=== PATIENT | male | born 1975 | race Caucasian/White ===

== ENCOUNTER 2016-09-25 07:15 | Day surgery (SDC) | payer BC ==
[~2016-09-25 07:15] MED LIST: Lactated Ringers 1,000 ML IV SCH; Lidocaine 1%/Sod Bicarbonate in NS 8.4% 1 ML Syringe IV PRN; Midazolam 1 MG/ML 2 ML SDV ONE; Propofol 200 MG/20 ML SDV ONE; Sodium Chloride 0.9% 10 ML Syringe FLUSH PRN; ceFAZolin 1 GM Vial ONE; fentaNYL 250 MCG/5 ML SDV ONE
--- NOTE | 2016-09-25 07:39 | PCM.PREANE ---
Preanesthetic Assessment - Anesthesia/Transfusion/Family Hx Anesthesia History: Prior Anesthesia Without Reaction Type of Anesthesia Reaction: Excessive Nausea/Vomiting, Unknown Family History of Anesthesia Reaction: No Transfusion History: Unknown Type of Transfusion Reactions: Reports: Unknown - Review of Systems General: No Symptoms Pulmonary: Other (hx of frostbite to lungs, no symptoms currently, only in very cold weather) Cardiovascular: No Symptoms Gastrointestinal: No symptoms Neurological: Other (left arm, here for surgery) - Physical Assessment NPO Status Date: 09/24/16 NPO Status Time: 18:30 Pulse: 77 O2 Sat by Pulse Oximetry: 93 Respiratory Rate: 16 Blood Pressure: 132/78 Temperature: 37.0 C Height: 1.91 m Weight: 167.829 kg ASA Class: 2 Mental Status: Alert & Oriented x3 Airway Class: Mallampati = 1 Dentition: Reports: Normal Dentition Thyro-Mental Finger Breadths: 3 Mouth Opening Finger Breadths: 3 ROM/Head Extension: Full Lungs: Clear to auscultation, Normal respiratory effort Cardiovascular: Regular Rate, Regular Rhythm - Allergies Allergies/Adverse Reactions: Allergies Allergy/AdvReac Type Severity Reaction Status Date / Time morphine Allergy Cannot Verified 09/24/16 14:22 Remember nut - unspecified Allergy Anaphylactic Verified 09/24/16 14:22 Shock - Blood Blood Available: No Product(s) Available: None - Anesthesia Plan Pre-Op Medication Ordered: None - Acknowledgements Anesthesia Type Planned: General Anesthesia Pt an Appropriate Candidate for the Planned Anesthesia: Yes Alternatives and Risks of Anesthesia Discussed w Pt/Guardian: Yes Pt/Guardian Understands and Agrees with Anesthesia Plan: Yes PreAnesthesia Questionnaire - Past Health History Medical/Surgical History: Denies Medical/Surgical History Cardiovascular History: Reports: None Respiratory History: Reports: Sleep apnea, Other (see below) Other Respiratory History: frostbite affecting trachea and lungs-states was told trachea and upper lungs have a lot of scar tissue, had chronic cough and was placed on prednisone for a year. Gastrointestinal History: Reports: None Genitourinary History: Reports: None SPOOL SANDER History: Reports: None Musculoskeletal History: Reports: Fracture Neurological History: Reports: Concussion Psychiatric History: Reports: None Endocrine/Metabolic History: Reports: Other (see below) Other Endocrine/Metabolic History: hypopituitarism, emtpy sella syndrome Hematologic History: Reports: None Immunologic History: Reports: None Oncologic (Cancer) History: Reports: None Dermatologic History: Reports: Other (see below) Other Dermatologic History: frostbite - Past Surgical History HEENT Surgical History: Reports: Oral surgery, Tonsillectomy Musculoskeletal Surgical History: Reports: Arthroscopic knee, Shoulder surgery, Other (see below) Other Musculoskeletal Surgeries/Procedures:: knee surgery with hardware - SUBSTANCE USE Smoking Status *Q: Never Smoker Second Hand Smoke Exposure: No Days Per Week of Alcohol Use: 0 Recreational Drug Use History: No - HOME MEDS Home Medications: Home Meds EPINEPHrine [Epipen] 0.3 mg IM ASDIRECTED PRN 09/06/14 [History] Phentermine HCl 37.5 mg PO DAILY 09/24/16 [History] Testosterone Cypionate [Depo-Testosterone] 1 dose SQ WEEKLY 09/24/16 [History] - CURRENT (IN HOUSE) MEDS Current Meds: Current Medications Lactated Ringer's (Ringers, Lactated) 1,000 mls @ 125 mls/hr IV ASDIRECTED ANNELISE Lidocaine/Sodium Bicarbonate (Buffered Lidocaine 1% In Ns 8.4%) 0.25 ml IV ONETIME PRN PRN Reason: Prior to IV Start Sodium Chloride (Saline Flush) 10 ml FLUSH ASDIRECTED PRN PRN Reason: Keep Vein Open Discontinued Medications Cefazolin Sodium (Ancef) Confirm Administered Dose 2 gm .ROUTE .STK-MED ONE Stop: 09/25/16 06:58 Fentanyl (Sublimaze) Confirm Administered Dose 250 mcg .ROUTE .STK-MED ONE Stop: 09/25/16 06:59 Midazolam HCl (Versed 1 Mg/Ml) Confirm Administered Dose 2 mg .ROUTE .STK-MED ONE Stop: 09/25/16 06:59 Propofol (Diprivan 20 Ml) Confirm Administered Dose 200 mg .ROUTE .STK-MED ONE Stop: 09/25/16 06:59
[2016-09-25] MEDS ORDERED: HYDROmorphone 0.5 MG/0.5 ML Syringe IVPUSH PRN (07:42)
[2016-09-25] MEDS ORDERED: Metoclopramide 10 MG/2 ML SDV IVPUSH PRN (07:42)
[2016-09-25] MEDS ORDERED: Ondansetron 4 MG/2 ML SDV IVPUSH PRN ×2 (07:42→07:50)
[2016-09-25] MEDS ORDERED: fentaNYL 100 MCG/2 ML SDV IVPUSH PRN (07:42)
[2016-09-25] MEDS ORDERED: Scopolamine 1.5 MG Transdermal Patch TOP ONE (07:45)
[2016-09-25] MEDS ORDERED: oxyCODONE ER 10 MG TAB.ER PO ONE (07:50)
[2016-09-25] MEDS ORDERED: Acetaminophen/oxyCODONE 325-5 MG Tab PO PRN (07:50)
[2016-09-25] MEDS ORDERED: Ketorolac 30 MG/ML SDV IVPUSH PRN (07:50)
[2016-09-25] MEDS ORDERED: Propofol 200 MG/20 ML SDV ONE (08:05)
[2016-09-25] MEDS ORDERED: ceFAZolin 1 GM Vial ONE (08:13)
[2016-09-25] MEDS ORDERED: Ondansetron 4 MG/2 ML SDV ONE (08:21)
[2016-09-25] MEDS ORDERED: Dexamethasone 4 MG/ML SDV ONE (08:21)
[2016-09-25] MEDS: Lidocaine 1% with EPINEPHrine 1:100,000 20 ML MDV ONE ×2 (08:45→09:00)
[2016-09-25] MEDS ORDERED: Lactated Ringers 1,000 ML ONE (09:06)
[2016-09-25] MEDS ORDERED: Ketorolac 30 MG/ML SDV ONE (09:39)
--- NOTE | 2016-09-25 09:51 | PCM.POSTAN ---
POST ANESTHESIA ASSESSMENT - MENTAL STATUS Mental Status: alert, oriented - VITAL SIGNS Pulse Rate: 78 SaO2: 95 Resp Rate: 16 Blood Pressure: 138/72 Temperature: 37.0 C - RESPIRATORY Respiratory Status: respiratory rate WNL, airway patent, O2 saturation stable, supplemental oxygen - CARDIOVASCULAR CV Status: pulse rate WNL, blood pressure stable - GASTROINTESTINAL GI Status: no symptoms - PAIN Pain Score: 0 - POST OP HYDRATION Hydration Status: adequate & stable
[2016-09-25 12:54] VITALS: BP 143/68
--- NOTE | 2016-09-26 09:06 | OR ---
DATE OF OPERATION: 09/25/2016 SURGEON: Adiel Diaz MD PREOPERATIVE DIAGNOSIS: Cubital tunnel syndrome, left elbow, intractable pain and numbness. POSTOPERATIVE DIAGNOSIS: Cubital tunnel syndrome, left elbow, intractable pain and numbness. ANESTHESIA: General. OPERATION PERFORMED: Subcutaneous soft tissue transfer, left ulnar nerve, anterior. DESCRIPTION OF PROCEDURE: The patient was taken to the operating room in supine position and was placed under general anesthesia. Left upper extremity was prepped and draped by standard technique for approach to the medial side of his left elbow. After prepping and draping, the area of incision was marked, the medial epicondyle, and then area approximately 1.5 cm anterior to that for placement of the soft tissue fascial sling. Once those were marked, the incision was approximately a 10 cm incision, 5 cm above the medial epicondyle and 5 below with the center of the incision being placed between the olecranon and medial condyle. Penetration was made through the skin and subcutaneous tissues. These were bluntly dissected down to the fascia overlying the cubital tunnel area both proximally and distally taking care not to injure the superficial nerve structure in the deeper portion of the wound area. Once that was accomplished, the operation then proceeded with a soft tissue dissection proximally to find the ulnar nerve. This was identified and then it was dissected free proximally, approximately 8 cm above the elbow joint making sure there were no fibrous restrictions approximately. Once that was satisfied, the ulnar nerve was then dissected down through the cubital tunnel area where it was removed from a very thickened fascial tunnel structure area. Once the nerve was brought out from that area, it was then dissected down to the entry into the flexor carpi ulnaris muscle where it split between the humeral and the ulnar heads. The nerve was then dissected deeper and then palpated with the finger palpation deep to make sure there was no fibrous hiatal-type restriction distally. Once that was satisfied, the nerve was mobilized. The operation then proceeded with identification of the pronator muscle fascia. Once that was identified, a soft tissue flap was then developed, based on the medial epicondyle, approximately 2 cm long and 1.5 cm wide. The fascial window was then lifted off the muscle group by sharp dissection, leaving the base of it firmly attached to the medial epicondyle. Once that was lifted off, it was palpated on the muscle to make sure there were no hard fibrous bands. Once that was satisfied, in the proximal area, the intermuscular septum that ole off the medial condyle was identified. The soft tissues were reflected away along with the venous plexus area. Approximately 2 cm piece of that interseptum was removed to prevent any type of fibrous pressure against the nerve once it was transposed. By palpation of that, it was found to be nice and soft. The operation then proceeded with transfer of the nerve anteriorly. The fascia window was then attached to the subcutaneous tissue to the anterior portion of the subcutaneous tissues at approximately the 1.5-cm karlo, that was identified on the initial approach. Once the fascial window was attached with 3-0 Vicryl spitting out with the nerve being shifted anteriorly, the elbow was flexed and extended watching the excursion to make sure there was no abrupt angulation of the nerve coming out of the flexor group. Once that was satisfied, area was then palpated using a blunt hemostat in the fascial sling area. The nerve was nice and loose, and then also there was no palpable impingement going proximally. The area was then thoroughly irrigated and final inspection was then carried out to make sure no fibrous bands remained. The deeper tissues of the tunnel were then closed with 2-0 Vicryl. Then, once the deep structures were closed over, the operation proceeded with closure of the subcutaneous tissues with 2-0 and 3-0 Vicryl. Once the soft tissues were closed, subcutaneous tissues, the skin staple was then used to close the wound. The patient was placed in a nice soft dressing. He tolerated this whole procedure well and left the operating room in stable condition to room for recovery. ESTIMATED BLOOD LOSS: MMODAL /[id number]
== END 2016-09-25 12:30 | disposition home or self-care (01) ==
LOC: JD.SDS 07:15
PROVIDERS: ATTEND Specialist
DX: G56.22 Lesion of ulnar nerve, left upper limb (principal); E66.01 Morbid (severe) obesity due to excess calories; Z88.8 Allergy status to other drugs, medicaments and biological substances; Z79.899 Other long term (current) drug therapy; Z98.890 Other specified postprocedural states; Z91.018 Allergy to other foods; E23.0 Hypopituitarism
CPT/HCPCS: 64718; A9270; J0690; J1100; J1885; J2250; J2405; J3010; J7120; 01710; J2704

== ENCOUNTER 2019-01-12 09:45 | Inpatient (IN) | payer BC ==
--- NOTE | 2019-01-09 09:03 | PCM.PREANE ---
<Ruby Alvarez - Last Filed: 01/09/19 08:57> Preanesthetic Assessment - Anesthesia/Transfusion/Family Hx Anesthesia History: Prior Anesthesia Reaction Type of Anesthesia Reaction: Excessive Nausea/Vomiting Family History of Anesthesia Reaction: No Transfusion History: No Prior Transfusion(s) Intubation History: Unknown - Review of Systems Pulmonary: No Symptoms (History of frostbite to lungs/trachea: symptomatic only in cold weather/CHRISSY) Cardiovascular: No Symptoms (chronic epigastric pain/) Gastrointestinal: No Symptoms (GERD) Neurological: No Symptoms (Empty Sella Syndrome), Numbness (bilateral hands) - Physical Assessment NPO Status Date: 01/11/19 Vital Signs: Last Vital Signs Temp 36.3 C 01/12/19 10:00 Pulse 57 L 01/12/19 10:00 Resp 16 01/12/19 10:00 BP 137/72 01/12/19 10:00 Pulse Ox 97 01/12/19 10:00 Height: 1.91 m ASA Class: 2 Mental Status: Alert & Oriented x3 Dentition: Reports: Normal Dentition, Caries Thyro-Mental Finger Breadths: 3 Mouth Opening Finger Breadths: 3 ROM/Head Extension: Full - Lab Values: Laboratory Last Values MRSA (PCR) Negative 01/06/19 09:21 All lab values reviewed and noted and within acceptable ranges to proceed with scheduled procedure. - Imaging/EKG Impressions: CXR: negative EKG:SR rate=63, incomplete RBBB - Allergies Allergies/Adverse Reactions: Allergies Allergy/AdvReac Type Severity Reaction Status Date / Time morphine Allergy Cannot Verified 01/09/19 13:35 Remember nut - unspecified Allergy Anaphylactic Verified 01/09/19 13:35 Shock - Anesthesia Plan Pre-Op Medication Ordered: Other (PreOp meds: lyrica, tylenol, oxycodone P.O.@) - Acknowledgements Anesthesia Type Planned: Spinal (Right adductor canal block under US guidance for post operative pain control requested by Dr. Ac.) Pt an Appropriate Candidate for the Planned Anesthesia: Yes Alternatives and Risks of Anesthesia Discussed w Pt/Guardian: Yes Pt/Guardian Understands and Agrees with Anesthesia Plan: Yes PreAnesthesia Questionnaire - Past Health History Medical/Surgical History: Denies Medical/Surgical History Cardiovascular History: Reports: None Respiratory History: Reports: Sleep Apnea, Other (See Below) Other Respiratory History: frostbite affecting trachea and lungs-states was told trachea and upper lungs have a lot of scar tissue, had chronic cough and was placed on prednisone for a year. Gastrointestinal History: Reports: None Genitourinary History: Reports: None CHIEF OPERATING OFFICER History: Reports: None Musculoskeletal History: Reports: Fracture Neurological History: Reports: Concussion Psychiatric History: Reports: None Endocrine/Metabolic History: Reports: Other (See Below) Other Endocrine/Metabolic History: hypopituitarism, emtpy sella syndrome Hematologic History: Reports: None Immunologic History: Reports: None Oncologic (Cancer) History: Reports: None Dermatologic History: Reports: Other (See Below) Other Dermatologic History: frostbite - Past Surgical History HEENT Surgical History: Reports: Oral Surgery, Tonsillectomy Musculoskeletal Surgical History: Reports: Arthroscopic Knee, Shoulder Surgery, Other (See Below) - HOME MEDS Home Medications: Home Meds . [No Known Home Meds] 01/09/19 [History] - CURRENT (IN HOUSE) MEDS Current Meds: Current Medications Acetaminophen (Tylenol) 975 mg PO ONETIME ANNELISE Stop: 01/12/19 14:00 Last Admin: 01/12/19 10:03 Dose: 975 mg Bisacodyl (Dulcolax) 5 mg PO DAILY PRN PRN Reason: Constipation Epinephrine HCl 0.3 mg/Cefuroxime Sodium 750 mg/Ketorolac Tromethamine 30 mg/ Sodium Chloride 28.7 ml 0 mg .XX ONETIME ONE Stop: 01/12/19 13:01 Cyclobenzaprine HCl (Flexeril) 10 mg PO TID PRN PRN Reason: Spasms Docusate Sodium (Colace) 100 mg PO BID ANNELISE Famotidine (Pepcid) 20 mg PO Q12H ANNELISE Hydromorphone HCl (Dilaudid) 0.2 mg IVPUSH Q2H PRN PRN Reason: Pain (moderate 4-6) Lactated Ringer's (Ringers, Lactated) 1,000 mls @ 125 mls/hr IV ASDIRECTED ANNELISE Stop: 01/12/19 23:00 Cefazolin Sodium/Dextrose 2 gm (/ Premix) 50 mls @ 100 mls/hr IV Q8H ANNELISE Stop: 01/12/19 23:44 Ketorolac Tromethamine (Toradol) 15 mg IVPUSH Q6H PRN PRN Reason: Pain Lidocaine/Sodium Bicarbonate (Buffered Lidocaine 1% In Ns 8.4%) 0.25 ml IDERM ONETIME PRN PRN Reason: Prior to IV Start Stop: 01/12/19 18:00 Magnesium Hydroxide (Milk Of Magnesia) 30 ml PO BID PRN PRN Reason: Constipation Naloxone HCl (Narcan) 0.1 mg IVPUSH Q5M PRN PRN Reason: Oversedation Ondansetron HCl (Zofran) 4 mg IVPUSH Q6H PRN PRN Reason: Nausea/Vomiting Oxycodone HCl (Oxycontin) 10 mg PO ONETIME ANNELISE Stop: 01/12/19 14:00 Last Admin: 01/12/19 10:02 Dose: 10 mg Oxycodone/Acetaminophen (Percocet 325-5 Mg) 1 - 2 tab PO Q4H PRN PRN Reason: Pain Pregabalin (Lyrica) 50 mg PO ONETIME ANNELISE Stop: 01/12/19 14:00 Last Admin: 01/12/19 10:02 Dose: 50 mg Rivaroxaban (Xarelto) 10 mg PO DAILY ANNELISE Scopolamine (Transderm-Scop) 1.5 mg TRDERM ONETIME ANNELISE Stop: 01/12/19 14:00 Last Admin: 01/12/19 10:03 Dose: 1.5 mg Senna (Senna) 8.6 mg PO BID PRN PRN Reason: Constipation Sodium Chloride (Saline Flush) 10 ml FLUSH ASDIRECTED PRN PRN Reason: Keep Vein Open Stop: 01/12/19 18:00 Discontinued Medications Cefazolin Sodium (Ancef) Confirm Administered Dose 3 gm .ROUTE .STK-MED ONE Stop: 01/12/19 07:37 Dexamethasone (Dexamethasone) Confirm Administered Dose 20 mg .ROUTE .STK-MED ONE Stop: 01/12/19 07:37 Epinephrine HCl (Adrenalin) Confirm Administered Dose 1 mg .ROUTE .STK-MED ONE Stop: 01/12/19 06:49 Fentanyl (Sublimaze) Confirm Administered Dose 100 mcg .ROUTE .STK-MED ONE Stop: 01/12/19 07:38 Lidocaine HCl (Xylocaine-Mpf 1%) Confirm Administered Dose 10 mls @ as directed .ROUTE .STK-MED ONE Stop: 01/12/19 07:37 Lactated Ringer's (Ringers, Lactated) Confirm Administered Dose 1,000 mls @ as directed .ROUTE .STK-MED ONE Stop: 01/12/19 07:37 Ketamine HCl (Ketalar) Confirm Administered Dose 500 mg .ROUTE .STK-MED ONE Stop: 01/12/19 07:38 Ketorolac Tromethamine (Toradol) Confirm Administered Dose 30 mg .ROUTE .STK- MED ONE Stop: 01/12/19 07:37 Midazolam HCl (Versed 1 Mg/Ml) Confirm Administered Dose 2 mg .ROUTE .STK-MED ONE Stop: 01/12/19 07:38 Propofol (Diprivan 20 Ml) Confirm Administered Dose 400 mg .ROUTE .STK-MED ONE Stop: 01/12/19 07:38 Ropivacaine (Naropin 0.5%) Confirm Administered Dose 30 ml .ROUTE .STK-MED ONE Stop: 01/12/19 06:49 <Celsa Prasad - Last Filed: 01/12/19 10:34> Preanesthetic Assessment - Review of Systems General: No Symptoms Pulmonary: Shortness of Breath (activity ), Cough (in cold weather activates extreme coughing ), Other (obese ) Gastrointestinal: No Symptoms Neurological: No Symptoms - Physical Assessment NPO Status Time: 20:00 ASA Class: 3 Mental Status: Alert & Oriented x3 Airway Class: Mallampati = 1 Dentition: Reports: Normal Dentition, Caries ROM/Head Extension: Full Lungs: Clear to Auscultation, Normal Respiratory Effort Cardiovascular: Regular Rate, Regular Rhythm - Blood Blood Available: No - Acknowledgements Anesthesia Type Planned: Spinal Pt an Appropriate Candidate for the Planned Anesthesia: Yes Alternatives and Risks of Anesthesia Discussed w Pt/Guardian: Yes Pt/Guardian Understands and Agrees with Anesthesia Plan: Yes
[~2019-01-12 09:45] MED LIST changes: +Acetaminophen 325 MG Tab PO SCH; +Bisacodyl 5 MG Tab PO PRN; +Dexamethasone 4 MG/ML 5 ML MDV ONE; +EPINEPHrine 1 MG/1 ML Amp ONE; +HYDROmorphone 0.5 MG/0.5 ML Syringe IVPUSH PRN; +Ketamine 500 mg/10 ML MDV ONE; +Ketorolac 30 MG/ML SDV ONE; +Lactated Ringers 1,000 ML ONE; +Lidocaine 1%/Sod Bicarbonate in NS 8.4% 1 ML Syringe IDERM PRN; -Lidocaine 1%/Sod Bicarbonate in NS 8.4% 1 ML Syringe IV PRN; +Magnesium Hydroxide 400 MG/5 ML Susp 30 ML Cup PO PRN; +Naloxone 0.4 MG/ML SDV IVPUSH PRN; +Ondansetron 4 MG/2 ML SDV IVPUSH PRN; +Pregabalin 25 MG Cap PO SCH; +Ropivacaine 0.5% 5 MG/ML 30 ML SDV ONE; +Scopolamine 1.5 MG Transdermal Patch TRDERM SCH; +Sennosides 8.6 MG Tab PO PRN; +fentaNYL 100 MCG/2 ML SDV ONE; -fentaNYL 250 MCG/5 ML SDV ONE; +oxyCODONE ER 10 MG TAB.ER PO SCH
[2019-01-12] MEDS ORDERED: Iodine/Sodium Iodide 2% Tincture 30 ML Bottle ONE (12:46)
[2019-01-12] MEDS ORDERED: ceFAZolin 1 GM Vial ONE (12:46)
[2019-01-12] MEDS ORDERED: Bupivacaine 0.25% 10 ML SDV ONE (12:47)
[2019-01-12] MEDS ORDERED: diphenhydrAMINE 50 MG/ML SDV ONE (12:48)
[2019-01-12] MEDS: EPINEPHrine 0.3 MG, Cefuroxime 750 MG, Ketorolac 30 MG, Sodium Chloride 0.9% 28.7 ML ONE ×8 (13:40→17:40)
[2019-01-12] MEDS ORDERED: Haloperidol Lactate 5 MG/ML SDV IVPUSH ONE (13:42)
[2019-01-12] MEDS ORDERED: ePHEDrine 50 MG/ML SDV IVPUSH PRN (13:42)
[2019-01-12] MEDS ORDERED: fentaNYL 100 MCG/2 ML SDV IVPUSH PRN (13:42)
[2019-01-12] MEDS ORDERED: HYDROmorphone 0.5 MG/0.5 ML Syringe IVPUSH PRN (13:42)
[2019-01-12] MEDS ORDERED: Ondansetron 4 MG/2 ML SDV IVPUSH PRN (13:42)
[2019-01-12] MEDS ORDERED: Albuterol 0.083% 2.5 MG/3 ML Neb Soln NEB PRN (13:42)
[2019-01-12] MEDS ORDERED: Phenylephrine 1 MG in Sodium Chloride 0.9% 10 ML IV SCH (13:45)
[2019-01-12] MEDS ORDERED: Albuterol 0.083% 2.5 MG/3 ML Neb Soln ONE (14:14)
[2019-01-12] MEDS ORDERED: Propofol 200 MG/20 ML SDV ONE (14:15)
[2019-01-12] MEDS ORDERED: ePHEDrine/Normal Saline 25 MG/5 ML Syringe ONE (14:20)
[2019-01-12] MEDS: Vancomycin 1 GM SDV ONE ×2 (14:40→14:41)
[2019-01-12] MEDS ORDERED: Phenylephrine/Normal Saline 100 MCG/ML 10 ML Syringe ONE (14:44)
--- NOTE | 2019-01-12 15:21 | PCM.POSTAN ---
POST ANESTHESIA ASSESSMENT - MENTAL STATUS Mental Status: Alert - VITAL SIGNS Vital Signs: Last Vital Signs Temp 97.2f 01/12/19 15:14 Pulse 62 01/12/19 15:14 Resp 12 01/12/19 15:14 BP 106/49 01/12/19 15:14 Pulse Ox 94 01/12/19 15:14 - RESPIRATORY Respiratory Status: Respiratory Rate WNL, Airway Patent, O2 Saturation Stable, Supplemental Oxygen - CARDIOVASCULAR CV Status: Pulse Rate WNL, Blood Pressure Stable - GASTROINTESTINAL GI Status: No Symptoms - POST OP HYDRATION Hydration Status: Adequate & Stable
--- NOTE | 2019-01-12 15:42 | PCM.SN ---
- Free Text/Narrative Note: Right selective femoral nerve block at the adductor canal for post-procedure pain control under US guidance requested by Dr. Ac. Time Out: 152 Start: 152 End: 152 Chart reviewed. Consent signed. Questions answered. Appropriate monitors applied. Time out performed. Right mid-shaft femur identified with ultrasound, scanning medially of femur, the femoral artery in the adductor canal visualized , and the femoral nerve located laterally to the artery. The skin was prepped lateral to the ultrasound probe with chlorahexadine times two. The 21ga 4 insulated block needle was inserted under direct ultrasound guidance into the adductor canal. 25mL of 0.5% ropivacaine with 1:200,000 epinephrine was injected circumferentially around the nerve with intermittent negative aspiration noted. Patient tolerated the procedure well. Sterile technique noted along with sterile gloves, mask, and sterile probe cover. See picture on progress note and vital signs on nurses notes. Block completed in PACU. Ruby Alvarez CRNA
--- NOTE | 2019-01-12 17:50 | CR ---
Right knee: AP and lateral views of the right knee were obtained. Comparison: Previous MRI right knee study of 02/05/18. Knee prosthesis is seen. Components are aligned. Underlying bony structures are intact. Soft tissue air is seen. Impression: 1. Satisfactory postoperative radiographic appearance of recently placed right knee prosthesis. Diagnostic code #2
[2019-01-12] MEDS: Acetaminophen/oxyCODONE 325-5 MG Tab PO PRN (17:52)
[2019-01-12] MEDS: Cyclobenzaprine 10 MG Tab PO PRN (17:53)
[2019-01-12] MEDS: ceFAZolin 2 GM in Premix Bag 1 BAG IV SCH (21:37)
[2019-01-12] MEDS: Famotidine 20 MG Tab PO SCH (21:37)
[2019-01-12] MEDS: Docusate Sodium 100 MG Cap PO SCH (21:37)
[2019-01-12] MEDS: ceFAZolin 1 GM in Premix Bag 1 BAG IV SCH (21:38)
[2019-01-12] MEDS: Ketorolac 15 MG/ML SDV IVPUSH PRN (22:18)
[2019-01-13] MEDS: Cyclobenzaprine 10 MG Tab PO PRN ×3 (01:33→13:24)
[2019-01-13] MEDS: ceFAZolin 2 GM in Premix Bag 1 BAG IV SCH ×2 (04:01→13:01)
[2019-01-13] MEDS: ceFAZolin 1 GM in Premix Bag 1 BAG IV SCH ×2 (04:02→13:00)
[2019-01-13] MEDS: Acetaminophen/oxyCODONE 325-5 MG Tab PO PRN ×2 (04:43→10:33)
[2019-01-13] MEDS: Ketorolac 15 MG/ML SDV IVPUSH PRN ×2 (08:14→13:24)
[2019-01-13] MEDS: Docusate Sodium 100 MG Cap PO SCH (08:17)
[2019-01-13] MEDS: Famotidine 20 MG Tab PO SCH (08:17)
--- NOTE | 2019-01-13 08:35 | PCM.SURGPN ---
- General Info Date of Service: 01/13/19 POD#: 1 Functional Status: Reports: Pain Controlled, Tolerating Diet, Ambulating, Urinating, Incentive Spirometry - Patient Data Vitals - Most Recent: Last Vital Signs Temp 97.5 F 01/13/19 04:07 Pulse 68 01/13/19 04:07 Resp 18 01/13/19 04:07 BP 134/98 H 01/13/19 04:07 Pulse Ox 94 L 01/13/19 04:07 Weight - Most Recent: 357 lb I&O - Last 24 Hours: Intake & Output 01/12/19 01/13/19 01/13/19 22:59 06:59 14:59 Intake Total 260 Balance 260 Lab Results Last 24 Hrs: Laboratory Results - last 24 hr 01/13/19 01/13/19 Range/Units 06:04 06:04 WBC 13.82 H (4.23-9.07) K/mm3 RBC 4.80 (4.63-6.08) M/mm3 Hgb 12.5 L D (13.7-17.5) gm/L Hct 38.2 L (40.1-51.0) % MCV 79.6 (79.0-92.2) fl MCH 26.0 (25.7-32.2) pg MCHC 32.7 (32.2-35.5) g/dl RDW Std Deviation 44.7 H (35.1-43.9) fL Plt Count 266 (163-337) K/mm3 MPV 10.8 (9.4-12.3) fl Sodium 136 (136-145) mEq/L Potassium 4.0 (3.5-5.1) mEq/L Chloride 101 (98-107) mEq/L Carbon Dioxide 24 (21-32) mEq/L Anion Gap 15.0 (5-15) BUN 15 (7-18) mg/dL Creatinine 1.2 (0.7-1.3) mg/dL Est Cr Clr Drug Dosing 63.22 mL/min Estimated GFR (MDRD) > 60 (>60) mL/min BUN/Creatinine Ratio 12.5 L (14-18) Glucose 107 H (74-106) mg/dL Calcium 8.6 (8.5-10.1) mg/dL Total Bilirubin 0.4 (0.2-1.0) mg/dL AST 20 (15-37) U/L ALT 53 (16-63) U/L Alkaline Phosphatase 76 (46-116) U/L Total Protein 7.0 (6.4-8.2) g/dl Albumin 3.3 L (3.4-5.0) g/dl Globulin 3.7 gm/dL Albumin/Globulin Ratio 0.9 L (1-2) Med Orders - Current: Current Medications Bisacodyl (Dulcolax) 5 mg PO DAILY PRN PRN Reason: Constipation Cyclobenzaprine HCl (Flexeril) 10 mg PO TID PRN PRN Reason: Spasms Last Admin: 01/13/19 08:17 Dose: 10 mg Docusate Sodium (Colace) 100 mg PO BID [facility] Last Admin: 01/13/19 08:17 Dose: 100 mg Famotidine (Pepcid) 20 mg PO Q12H [facility] Last Admin: 01/13/19 08:17 Dose: 20 mg Hydromorphone HCl (Dilaudid) 0.2 mg IVPUSH Q2H PRN PRN Reason: Pain (moderate 4-6) Cefazolin Sodium/Dextrose 2 gm (/ Premix) 50 mls @ 100 mls/hr IV Q8H [facility] Stop: 01/13/19 13:14 Last Admin: 01/13/19 04:01 Dose: 100 mls/hr Cefazolin Sodium/Dextrose 1 gm (/ Premix) 50 mls @ 100 mls/hr IV Q8H [facility] Stop: 01/13/19 13:14 Last Admin: 01/13/19 04:02 Dose: 100 mls/hr Ketorolac Tromethamine (Toradol) 15 mg IVPUSH Q6H PRN PRN Reason: Pain Last Admin: 01/13/19 08:14 Dose: 15 mg Magnesium Hydroxide (Milk Of Magnesia) 30 ml PO BID PRN PRN Reason: Constipation Naloxone HCl (Narcan) 0.1 mg IVPUSH Q5M PRN PRN Reason: Oversedation Ondansetron HCl (Zofran) 4 mg IVPUSH Q6H PRN PRN Reason: Nausea/Vomiting Oxycodone/Acetaminophen (Percocet 325-5 Mg) 1 - 2 tab PO Q4H PRN PRN Reason: Pain Last Admin: 01/13/19 04:43 Dose: 2 tab Rivaroxaban (Xarelto) 10 mg PO DAILY [facility] Senna (Senna) 8.6 mg PO BID PRN PRN Reason: Constipation Discontinued Medications Acetaminophen (Tylenol) 975 mg PO ONETIME [facility] Stop: 01/12/19 14:00 Last Admin: 01/12/19 10:03 Dose: 975 mg Albuterol (Proventil Neb Soln) 2.5 mg NEB ONETIME PRN PRN Reason: improve oxygenation Stop: 01/12/19 16:00 Albuterol (Proventil Neb Soln) Confirm Administered Dose 2.5 mg .ROUTE .STK-MED ONE Stop: 01/12/19 14:15 Bupivacaine HCl (Sensorcaine-Mpf 0.25%) Confirm Administered Dose 30 ml .ROUTE .STK-MED ONE Stop: 01/12/19 12:48 Last Admin: 01/12/19 14:39 Dose: 30 ml Cefazolin Sodium (Ancef) Confirm Administered Dose 3 gm .ROUTE .STK-MED ONE Stop: 01/12/19 07:37 Cefazolin Sodium (Ancef) Confirm Administered Dose 2 gm .ROUTE .STK-MED ONE Stop: 01/12/19 12:47 Last Admin: 01/12/19 14:33 Dose: 2 gm Epinephrine HCl 0.3 mg/Cefuroxime Sodium 750 mg/Ketorolac Tromethamine 30 mg/ Sodium Chloride 28.7 ml 0 mg .XX ONETIME ONE Stop: 01/12/19 13:01 Last Admin: 01/12/19 17:40 Dose: Not Given Dexamethasone (Dexamethasone) Confirm Administered Dose 20 mg .ROUTE .STK-MED ONE Stop: 01/12/19 07:37 Diphenhydramine HCl (Benadryl) Confirm Administered Dose 50 mg .ROUTE .STK-MED ONE Stop: 01/12/19 12:49 Ephedrine Sulfate (Ephedrine Sulfate) 5 mg IVPUSH ASDIRECTED PRN PRN Reason: Hypotension Stop: 01/12/19 18:00 Ephedrine Sulfate (Ephedrine In Ns) Confirm Administered Dose 25 mg .ROUTE .STK- MED ONE Stop: 01/12/19 14:21 Epinephrine HCl (Adrenalin) Confirm Administered Dose 1 mg .ROUTE .STK-MED ONE Stop: 01/12/19 06:49 Fentanyl (Sublimaze) Confirm Administered Dose 100 mcg .ROUTE .STK-MED ONE Stop: 01/12/19 07:38 Fentanyl (Sublimaze) 50 mcg IVPUSH Q5M PRN PRN Reason: Pain Stop: 01/12/19 16:00 Haloperidol Lactate (Haldol) 1 mg IVPUSH ONETIME ONE Stop: 01/12/19 13:43 Last Admin: 01/12/19 17:40 Dose: Not Given Hydromorphone HCl (Dilaudid) 0.5 mg IVPUSH Q15M PRN PRN Reason: Pain (severe 7-10) Stop: 01/12/19 16:00 Lactated Ringer's (Ringers, Lactated) 1,000 mls @ 125 mls/hr IV ASDIRECTED [facility] Stop: 01/12/19 23:00 Last Admin: 01/12/19 10:15 Dose: 125 mls/hr Lidocaine HCl (Xylocaine-Mpf 1%) Confirm Administered Dose 10 mls @ as directed .ROUTE .STK-MED ONE Stop: 01/12/19 07:37 Lactated Ringer's (Ringers, Lactated) Confirm Administered Dose 1,000 mls @ as directed .ROUTE .STK-MED ONE Stop: 01/12/19 07:37 Phenylephrine HCl 1 mg/ Sodium (Chloride) 10.1 mls @ 1 mls/sec IV TITRATE [facility]EL[facility]; Protocol Stop: 01/12/19 16:00 Iodine (Iodine 2% Mild Tincture) Confirm Administered Dose 30 ml .ROUTE .STK- MED ONE Stop: 01/12/19 12:47 Last Admin: 01/12/19 14:30 Dose: 18 ml Ketamine HCl (Ketalar) Confirm Administered Dose 500 mg .ROUTE .STK-MED ONE Stop: 01/12/19 07:38 Ketorolac Tromethamine (Toradol) Confirm Administered Dose 30 mg .ROUTE .STK- MED ONE Stop: 01/12/19 07:37 Lidocaine/Sodium Bicarbonate (Buffered Lidocaine 1% In Ns 8.4%) 0.25 ml IDERM ONETIME PRN PRN Reason: Prior to IV Start Stop: 01/12/19 18:00 Midazolam HCl (Versed 1 Mg/Ml) Confirm Administered Dose 2 mg .ROUTE .STK-MED ONE Stop: 01/12/19 07:38 Ondansetron HCl (Zofran) 4 mg IVPUSH ONETIME PRN PRN Reason: Nausea/Vomiting Stop: 01/12/19 16:00 Oxycodone HCl (Oxycontin) 10 mg PO ONETIME [facility] Stop: 01/12/19 14:00 Last Admin: 01/12/19 10:02 Dose: 10 mg Phenylephrine HCl (Phenylephrine In Ns 100 Mcg/Ml) Confirm Administered Dose 1 mg .ROUTE .STK-MED ONE Stop: 01/12/19 14:45 Pregabalin (Lyrica) 50 mg PO ONETIME [facility] Stop: 01/12/19 14:00 Last Admin: 01/12/19 10:02 Dose: 50 mg Propofol (Diprivan 20 Ml) Confirm Administered Dose 400 mg .ROUTE .STK-MED ONE Stop: 01/12/19 07:38 Propofol (Diprivan 20 Ml) Confirm Administered Dose 400 mg .ROUTE .STK-MED ONE Stop: 01/12/19 14:16 Ropivacaine (Naropin 0.5%) Confirm Administered Dose 30 ml .ROUTE .STK-MED ONE Stop: 01/12/19 06:49 Scopolamine (Transderm-Scop) 1.5 mg TRDERM ONETIME [facility] Stop: 01/12/19 14:00 Last Admin: 01/12/19 10:03 Dose: 1.5 mg Sodium Chloride (Saline Flush) 10 ml FLUSH ASDIRECTED PRN PRN Reason: Keep Vein Open Stop: 01/12/19 18:00 Tranexamic Acid (Cyklokapron) Confirm Administered Dose 1,000 mg .ROUTE .STK- MED ONE Stop: 01/12/19 12:47 Last Admin: 01/12/19 14:45 Dose: 1,000 mg Vancomycin HCl (Vancomycin) Confirm Administered Dose 1 gm .ROUTE .STK-MED ONE Stop: 01/12/19 12:47 Last Admin: 01/12/19 14:41 Dose: 1 gm - Exam Wound/Incisions: Dressing Dry and Intact General: Alert, Cooperative, No Acute Distress Lungs: Normal Respiratory Effort Extremities: Other (NVS intact for RLE. Negrito's negative.) - Problem List Review Problem List Initiated/Reviewed/Updated: Yes - My Orders Last 24 Hours: Active Orders 24 hr Category Date Time Status Communication Order [RC] ROUTINE Care 01/12/19 13:42 Active Notify Provider [RC] ASDIRECTED Care 01/12/19 13:42 Active Pulse Oximetry [RC] ASDIRECTED Care 01/12/19 13:42 Active Ready for Discharge [RC] PER UNIT ROUTINE Care 01/13/19 08:31 Ordered Vital Signs [RC] Q15M Care 01/12/19 13:42 Inactive Regular Diet [DIET] Diet 01/12/19 Lunch Active Docusate Sodium [Colace] Med 01/12/19 21:00 Active 100 mg PO BID Famotidine [Pepcid] Med 01/12/19 21:00 Active 20 mg PO Q12H Rivaroxaban [Xarelto] Med 01/13/19 09:00 Active 10 mg PO DAILY ceFAZolin [Ancef] 1 gm Med 01/12/19 20:45 Active Premix Bag 1 bag IV Q8H ceFAZolin [Ancef] 2 gm Med 01/12/19 20:45 Active Premix Bag 1 bag IV Q8H Medication Orders Bisacodyl (Dulcolax) 5 mg PO DAILY PRN PRN Reason: Constipation Cyclobenzaprine HCl (Flexeril) 10 mg PO TID PRN PRN Reason: Spasms Last Admin: 01/13/19 08:17 Dose: 10 mg Admin: 01/13/19 01:33 Dose: 10 mg Admin: 01/12/19 17:53 Dose: 10 mg Docusate Sodium (Colace) 100 mg PO BID [facility] Last Admin: 01/13/19 08:17 Dose: 100 mg Admin: 01/12/19 21:37 Dose: 100 mg Famotidine (Pepcid) 20 mg PO Q12H [facility] Last Admin: 01/13/19 08:17 Dose: 20 mg Admin: 01/12/19 21:37 Dose: 20 mg Hydromorphone HCl (Dilaudid) 0.2 mg IVPUSH Q2H PRN PRN Reason: Pain (moderate 4-6) Cefazolin Sodium/Dextrose 2 gm (/ Premix) 50 mls @ 100 mls/hr IV Q8H [facility] Stop: 01/13/19 13:14 Last Admin: 01/13/19 04:01 Dose: 100 mls/hr Infusion: 01/12/19 22:07 Dose: 100 mls/hr Admin: 01/12/19 21:37 Dose: 100 mls/hr Cefazolin Sodium/Dextrose 1 gm (/ Premix) 50 mls @ 100 mls/hr IV Q8H [facility] Stop: 01/13/19 13:14 Last Admin: 01/13/19 04:02 Dose: 100 mls/hr Infusion: 01/12/19 22:08 Dose: 100 mls/hr Admin: 01/12/19 21:38 Dose: 100 mls/hr Ketorolac Tromethamine (Toradol) 15 mg IVPUSH Q6H PRN PRN Reason: Pain Last Admin: 01/13/19 08:14 Dose: 15 mg Admin: 01/12/19 22:18 Dose: 15 mg Magnesium Hydroxide (Milk Of Magnesia) 30 ml PO BID PRN PRN Reason: Constipation Naloxone HCl (Narcan) 0.1 mg IVPUSH Q5M PRN PRN Reason: Oversedation Ondansetron HCl (Zofran) 4 mg IVPUSH Q6H PRN PRN Reason: Nausea/Vomiting Oxycodone/Acetaminophen (Percocet 325-5 Mg) 1 - 2 tab PO Q4H PRN PRN Reason: Pain Last Admin: 01/13/19 04:43 Dose: 2 tab Admin: 01/12/19 17:52 Dose: 2 tab Rivaroxaban (Xarelto) 10 mg PO DAILY [facility] Senna (Senna) 8.6 mg PO BID PRN PRN Reason: Constipation - Assessment Assessment (Free Text/Narrative):: POD#1 - right TKA - Plan Plan (Free Text/Narrative):: 1. Hgb 12.5. 2. Discharge to home today. 3. Outpatient therapy. 4. Xarelto 10mg PO daily. The pt's case was discussed with Dr. Ac.
[2019-01-13] MEDS ORDERED: Rivaroxaban 10 MG Tab PO SCH (09:00)
[2019-01-13 13:08] VITALS: BP 126/68
--- NOTE | 2019-01-13 14:19 | PCM48HPAN ---
Post Anesthesia Note - EVALUATION WITHIN 48HRS OF ANESTHETIC Vital Signs in Normal Range: Yes Patient Participated in Evaluation: Yes Respiratory Function Stable: Yes Airway Patent: Yes Cardiovascular Function Stable: Yes Hydration Status Stable: Yes Pain Control Satisfactory: Yes Nausea and Vomiting Control Satisfactory: Yes Mental Status Recovered: Yes Vital Signs: Last Vital Signs Temp 36.6 C 01/13/19 11:32 Pulse 63 01/13/19 11:32 Resp 16 01/13/19 11:32 BP 126/68 01/13/19 11:32 Pulse Ox 95 01/13/19 11:32
--- NOTE | 2019-01-13 16:53 | PCM.DCSUM1 ---
Discharge Summary - Hospital Course Brief History: Rigoberto is a 43 yo male who underwent right TKA with Dr. Ac on 01-12-2019. The procedure was completed under spinal anesthesia with sedation. The pt tolerated the procedure well and was admitted to the [facility] under Medical-Surgical status. The pt's Hospital course was uneventful. The pt's Hgb on POD#1 was 12.5. On POD#1, Xarelto 10mg PO daily was initiated for VTE prophylaxis. SCDs and TEDs were also ordered. A Mepilex dressing was placed at the incision site at the time of surgery and remained clean and dry. The pt participated in P.T. and O.T. and progressed well. The pt was allowed to WBAT and used a FWW for mobility. On POD#1, the pt was deemed appropriate to discharge to home with his . - Discharge Data Discharge Date: 01/13/19 Discharge Disposition: Home, Self-Care 01 Condition: Good - Patient Summary/Data Consults: Consultations 01/12/19 07:10 OT Evaluation and Treatment [CONS] Routine PT Evaluation and Treatment [CONS] Routine - Patient Instructions Diet: Usual Diet as Tolerated Activity: Apply Ice, As Tolerated, Elevate Extremity, Full Weight Bearing Driving: Do Not Drive Showering/Bathing: May Shower Wound/Incision Care: Keep Operative Site/Wound Site Clean and Dry, Do NOT Change Dressing Notify Provider of: Fever, Increased Pain, Swelling and Redness, Drainage, Nausea and/or Vomiting Other/Special Instructions: Please get up and moving around EVERY HOUR while awake. This helps to prevent blood clots. Please use your walker and have help with mobility as needed. Take a short walk in your home every hour while awake. Please take the Xarelto blood thinner medication daily as directed. At home, please complete the exercises that you learned during the Hospital stay. Schedule for physical therapy. Use the pain medication as needed. The medication may cause drowsiness and constipation. Contact your primary care provider for instructions if you are constipated. You may use a stool softener like docusate sodium or Colace 100mg twice daily and/or a laxative like Miralax daily for constipation. Increase your water and fiber intake while you are using the pain medication. Discontinue use of the pain medication as soon as able. Please do not use other medications that may cause drowsiness (other pain medications, anxiety pills, cold medications, sleeping pills, etc) while using the prescription pain medication. Do not use alcohol while using the pain medication. You may use acetaminophen or Tylenol for pain management, however, please ensure you are not using over 4000 mg or 4 grams of acetaminophen per day from all sources. Your pain medication has 325mg of acetaminophen per tablet. At this time, please do not use ibuprofen (Motrin, Advil) or naproxen (Aleve) for pain management as you are using the Xarelto. When the Xarelto course is completed in 4 to 6 weeks, you could use ibuprofen or naproxen for pain management (if this is allowed by your primary care provider). Wear the BRANNON hose during the day and you may remove these at night. Elevate the limb to decrease swelling. Place ice to the area often. Place a towel between your skin and the blue pad. Use the incentive spirometer often. Take deep breaths throughout the day. Please keep the dressing in place until follow-up. Notify the Clinic if the dressing becomes saturated. Increase your protein intake while you are healing. Call the Clinic with questions or concerns - [phone]. - Discharge Plan *PRESCRIPTION DRUG MONITORING PROGRAM REVIEWED*: No *COPY OF PRESCRIPTION DRUG MONITORING REPORT IN PATIENT WAI: No Prescriptions/Med Rec: Acetaminophen/oxyCODONE [Percocet 325-5 MG] 1 - 2 tab PO Q4H PRN #60 tablet PRN Reason: Pain Cyclobenzaprine [Flexeril] 10 mg PO TID PRN #40 tablet PRN Reason: Spasms Rivaroxaban [Xarelto] 10 mg PO DAILY #30 tablet Home Medications: Home Meds Acetaminophen/oxyCODONE [Percocet 325-5 MG] 1 - 2 tab PO Q4H PRN #60 tablet [Rx] Bisacodyl [Dulcolax] 5 mg PO DAILY PRN tablet 01/13/19 [Rx] Cyclobenzaprine [Flexeril] 10 mg PO TID PRN #40 tablet 01/13/19 [Rx] Docusate Sodium [Colace] 100 mg PO BID cap 01/13/19 [Rx] Famotidine [Pepcid] 20 mg PO Q12H tablet 01/13/19 [Rx] Magnesium Hydroxide [Milk of Magnesia] 30 ml PO BID PRN cup 01/13/19 [Rx] Rivaroxaban [Xarelto] 10 mg PO DAILY #30 tablet 01/13/19 [Rx] Sennosides [Senna] 8.6 mg PO BID PRN tablet 01/13/19 [Rx] Patient Handouts: Total Knee Replacement, Care After, [id number], Total Knee Replacement, [id number] Referrals: Maryjo Pendleton PA-C [Physician [facility] Monitor] - - Discharge Summary/Plan Comment DC Time >30 min.: No - Patient Data Vitals - Most Recent: Last Vital Signs Temp 97.9 F 01/13/19 11:32 Pulse 63 01/13/19 11:32 Resp 16 01/13/19 11:32 BP 126/68 01/13/19 11:32 Pulse Ox 95 01/13/19 11:32 Weight - Most Recent: 357 lb I&O - Last 24 hours: Intake & Output 01/13/19 01/13/19 01/13/19 06:59 14:59 22:59 Intake Total 240 Balance 240 Lab Results - Last 24 hrs: Laboratory Results - last 24 hr 01/13/19 01/13/19 Range/Units 06:04 06:04 WBC 13.82 H (4.23-9.07) K/mm3 RBC 4.80 (4.63-6.08) M/mm3 Hgb 12.5 L D (13.7-17.5) gm/L Hct 38.2 L (40.1-51.0) % MCV 79.6 (79.0-92.2) fl MCH 26.0 (25.7-32.2) pg MCHC 32.7 (32.2-35.5) g/dl RDW Std Deviation 44.7 H (35.1-43.9) fL Plt Count 266 (163-337) K/mm3 MPV 10.8 (9.4-12.3) fl Sodium 136 (136-145) mEq/L Potassium 4.0 (3.5-5.1) mEq/L Chloride 101 (98-107) mEq/L Carbon Dioxide 24 (21-32) mEq/L Anion Gap 15.0 (5-15) BUN 15 (7-18) mg/dL Creatinine 1.2 (0.7-1.3) mg/dL Est Cr Clr Drug Dosing 63.22 mL/min Estimated GFR (MDRD) > 60 (>60) mL/min BUN/Creatinine Ratio 12.5 L (14-18) Glucose 107 H (74-106) mg/dL Calcium 8.6 (8.5-10.1) mg/dL Total Bilirubin 0.4 (0.2-1.0) mg/dL AST 20 (15-37) U/L ALT 53 (16-63) U/L Alkaline Phosphatase 76 (46-116) U/L Total Protein 7.0 (6.4-8.2) g/dl Albumin 3.3 L (3.4-5.0) g/dl Globulin 3.7 gm/dL Albumin/Globulin Ratio 0.9 L (1-2) Med Orders - Current: Current Medications Discontinued Medications Acetaminophen (Tylenol) 975 mg PO ONETIME [facility] Stop: 01/12/19 14:00 Last Admin: 01/12/19 10:03 Dose: 975 mg Albuterol (Proventil Neb Soln) 2.5 mg NEB ONETIME PRN PRN Reason: improve oxygenation Stop: 01/12/19 16:00 Albuterol (Proventil Neb Soln) Confirm Administered Dose 2.5 mg .ROUTE .STK-MED ONE Stop: 01/12/19 14:15 Bisacodyl (Dulcolax) 5 mg PO DAILY PRN PRN Reason: Constipation Bupivacaine HCl (Sensorcaine-Mpf 0.25%) Confirm Administered Dose 30 ml .ROUTE .STK-MED ONE Stop: 01/12/19 12:48 Last Admin: 01/12/19 14:39 Dose: 30 ml Cefazolin Sodium (Ancef) Confirm Administered Dose 3 gm .ROUTE .STK-MED ONE Stop: 01/12/19 07:37 Cefazolin Sodium (Ancef) Confirm Administered Dose 2 gm .ROUTE .STK-MED ONE Stop: 01/12/19 12:47 Last Admin: 01/12/19 14:33 Dose: 2 gm Epinephrine HCl 0.3 mg/Cefuroxime Sodium 750 mg/Ketorolac Tromethamine 30 mg/ Sodium Chloride 28.7 ml 0 mg .XX ONETIME ONE Stop: 01/12/19 13:01 Last Admin: 01/12/19 17:40 Dose: Not Given Cyclobenzaprine HCl (Flexeril) 10 mg PO TID PRN PRN Reason: Spasms Last Admin: 01/13/19 13:24 Dose: 10 mg Dexamethasone (Dexamethasone) Confirm Administered Dose 20 mg .ROUTE .STK-MED ONE Stop: 01/12/19 07:37 Diphenhydramine HCl (Benadryl) Confirm Administered Dose 50 mg .ROUTE .STK-MED ONE Stop: 01/12/19 12:49 Docusate Sodium (Colace) 100 mg PO BID [facility] Last Admin: 01/13/19 08:17 Dose: 100 mg Ephedrine Sulfate (Ephedrine Sulfate) 5 mg IVPUSH ASDIRECTED PRN PRN Reason: Hypotension Stop: 01/12/19 18:00 Ephedrine Sulfate (Ephedrine In Ns) Confirm Administered Dose 25 mg .ROUTE .STK- MED ONE Stop: 01/12/19 14:21 Epinephrine HCl (Adrenalin) Confirm Administered Dose 1 mg .ROUTE .STK-MED ONE Stop: 01/12/19 06:49 Famotidine (Pepcid) 20 mg PO Q12H [facility] Last Admin: 01/13/19 08:17 Dose: 20 mg Fentanyl (Sublimaze) Confirm Administered Dose 100 mcg .ROUTE .STK-MED ONE Stop: 01/12/19 07:38 Fentanyl (Sublimaze) 50 mcg IVPUSH Q5M PRN PRN Reason: Pain Stop: 01/12/19 16:00 Haloperidol Lactate (Haldol) 1 mg IVPUSH ONETIME ONE Stop: 01/12/19 13:43 Last Admin: 01/12/19 17:40 Dose: Not Given Hydromorphone HCl (Dilaudid) 0.2 mg IVPUSH Q2H PRN PRN Reason: Pain (moderate 4-6) Hydromorphone HCl (Dilaudid) 0.5 mg IVPUSH Q15M PRN PRN Reason: Pain (severe 7-10) Stop: 01/12/19 16:00 Lactated Ringer's (Ringers, Lactated) 1,000 mls @ 125 mls/hr IV ASDIRECTED [facility] Stop: 01/12/19 23:00 Last Admin: 01/12/19 10:15 Dose: 125 mls/hr Cefazolin Sodium/Dextrose 2 gm (/ Premix) 50 mls @ 100 mls/hr IV Q8H [facility] Stop: 01/13/19 13:14 Last Admin: 01/13/19 13:01 Dose: 100 mls/hr Lidocaine HCl (Xylocaine-Mpf 1%) Confirm Administered Dose 10 mls @ as directed .ROUTE .STK-MED ONE Stop: 01/12/19 07:37 Lactated Ringer's (Ringers, Lactated) Confirm Administered Dose 1,000 mls @ as directed .ROUTE .STK-MED ONE Stop: 01/12/19 07:37 Phenylephrine HCl 1 mg/ Sodium (Chloride) 10.1 mls @ 1 mls/sec IV TITRATE ANNELISE; Protocol Stop: 01/12/19 16:00 Cefazolin Sodium/Dextrose 1 gm (/ Premix) 50 mls @ 100 mls/hr IV Q8H [facility] Stop: 01/13/19 13:14 Last Admin: 01/13/19 13:00 Dose: 100 mls/hr Iodine (Iodine 2% Mild Tincture) Confirm Administered Dose 30 ml .ROUTE .STK- MED ONE Stop: 01/12/19 12:47 Last Admin: 01/12/19 14:30 Dose: 18 ml Ketamine HCl (Ketalar) Confirm Administered Dose 500 mg .ROUTE .STK-MED ONE Stop: 01/12/19 07:38 Ketorolac Tromethamine (Toradol) 15 mg IVPUSH Q6H PRN PRN Reason: Pain Last Admin: 01/13/19 13:24 Dose: 15 mg Ketorolac Tromethamine (Toradol) Confirm Administered Dose 30 mg .ROUTE .STK- MED ONE Stop: 01/12/19 07:37 Lidocaine/Sodium Bicarbonate (Buffered Lidocaine 1% In Ns 8.4%) 0.25 ml IDERM ONETIME PRN PRN Reason: Prior to IV Start Stop: 01/12/19 18:00 Magnesium Hydroxide (Milk Of Magnesia) 30 ml PO BID PRN PRN Reason: Constipation Midazolam HCl (Versed 1 Mg/Ml) Confirm Administered Dose 2 mg .ROUTE .STK-MED ONE Stop: 01/12/19 07:38 Naloxone HCl (Narcan) 0.1 mg IVPUSH Q5M PRN PRN Reason: Oversedation Ondansetron HCl (Zofran) 4 mg IVPUSH Q6H PRN PRN Reason: Nausea/Vomiting Ondansetron HCl (Zofran) 4 mg IVPUSH ONETIME PRN PRN Reason: Nausea/Vomiting Stop: 01/12/19 16:00 Oxycodone HCl (Oxycontin) 10 mg PO ONETIME [facility] Stop: 01/12/19 14:00 Last Admin: 01/12/19 10:02 Dose: 10 mg Oxycodone/Acetaminophen (Percocet 325-5 Mg) 1 - 2 tab PO Q4H PRN PRN Reason: Pain Last Admin: 01/13/19 10:33 Dose: 2 tab Phenylephrine HCl (Phenylephrine In Ns 100 Mcg/Ml) Confirm Administered Dose 1 mg .ROUTE .STK-MED ONE Stop: 01/12/19 14:45 Pregabalin (Lyrica) 50 mg PO ONETIME [facility] Stop: 01/12/19 14:00 Last Admin: 01/12/19 10:02 Dose: 50 mg Propofol (Diprivan 20 Ml) Confirm Administered Dose 400 mg .ROUTE .STK-MED ONE Stop: 01/12/19 07:38 Propofol (Diprivan 20 Ml) Confirm Administered Dose 400 mg .ROUTE .STK-MED ONE Stop: 01/12/19 14:16 Rivaroxaban (Xarelto) 10 mg PO DAILY [facility] Last Admin: 01/13/19 10:31 Dose: 10 mg Ropivacaine (Naropin 0.5%) Confirm Administered Dose 30 ml .ROUTE .STK-MED ONE Stop: 01/12/19 06:49 Scopolamine (Transderm-Scop) 1.5 mg TRDERM ONETIME [facility] Stop: 01/12/19 14:00 Last Admin: 01/12/19 10:03 Dose: 1.5 mg Senna (Senna) 8.6 mg PO BID PRN PRN Reason: Constipation Sodium Chloride (Saline Flush) 10 ml FLUSH ASDIRECTED PRN PRN Reason: Keep Vein Open Stop: 01/12/19 18:00 Last Admin: 01/13/19 13:03 Dose: 10 ml Tranexamic Acid (Cyklokapron) Confirm Administered Dose 1,000 mg .ROUTE .STK- MED ONE Stop: 01/12/19 12:47 Last Admin: 01/12/19 14:45 Dose: 1,000 mg Vancomycin HCl (Vancomycin) Confirm Administered Dose 1 gm .ROUTE .STK-MED ONE Stop: 01/12/19 12:47 Last Admin: 01/12/19 14:41 Dose: 1 gm
--- NOTE | 2019-01-16 13:41 | PCM.OPNOTE ---
- General Post-Op/Procedure Note Date of Surgery/Procedure: 01/12/19 Operative Procedure(s): right total knee arthroplasty Pre Op Diagnosis: right knee osteoarthrosis Post-Op Diagnosis: Same Anesthesia Technique: Local, MAC, Spinal Primary Surgeon: Godfrey Ac Anesthesia Provider: Ruby Alvarez Oil Expeller: Maryjo Pendleton Oil Expeller: Kitty Rod EBL in mLs: 550 Complications: None Condition: Good Free Text/Narrative:: size 10/23 9mm 35x10
--- NOTE | 2019-01-16 14:08 | OR ---
DATE OF OPERATION: 01/12/2019 SURGEON: Godfrey Ac MD OPERATION PERFORMED: Right total knee arthroplasty. PREOPERATIVE DIAGNOSIS: Right knee osteoarthrosis. POSTOPERATIVE DIAGNOSIS: Right knee osteoarthrosis. ANESTHESIA: Local MAC with spinal. ANESTHESIA PROVIDER: Ruby Alvarez CRNA MEDICAL DIRECTOR OCCUPATIONAL HEALTH: Maryjo Pendleton PA-C and Kitty Rod LPN. ESTIMATED BLOOD LOSS: 550 mL. COMPLICATIONS: None. CONDITION: Stable. IMPLANTS: 1. Sindy size 6 press-fit CR femur. 2. Sindy size 6 press-fit tibial base plate. 3. Sindy size 6, 9 mm CS polyethylene insert. 4. Sindy size 3, 5 x 10 mm press fit asymmetric patella. DESCRIPTION OF PROCEDURE: The patient was identified in the preop holding area. Proper site was marked and identified by the surgeon. The patient was taken back to the operating theater. After adequate anesthesia, the patient's right lower extremity had a nonsterile tourniquet applied and it was sterilely prepped and draped in the usual sterile fashion. OR time-out was performed. The patient received 2 g IV Ancef. At this time, the right lower extremity was exsanguinated. Tourniquet was insufflated to 300 mmHg. Standard medial parapatellar incision was made. Medial parapatellar arthrotomy was created. Deep fibers of the MCL were raised and anterior fat pad was resected. At this time, attention was turned to the patella. Patella measured 24, it was resected to a 14 for 35 x 10 mm patella. Drill holes were then drilled and found to be in adequate position. The drill was then drilled in the distal femur and the intramedullary distal femoral cutting guide was then placed. 8 mm was resected off the distal femur and was found to be an adequate resection. Sizing guide was placed. It was found to be a size 6 press-fit CR femur that was shown on the implant record at the beginning of this dictation. The drill holes were drilled for the epicondylar axis using Whitesides line and epicondyles as reference. At this time, the 4-in - 1 cutting block was placed. An anterior posterior and anterior and posterior chamfer cuts were then completed. Attention was turned to the tibia. The posterior medial lateral retractors were placed. The extramedullary tibial guide was placed. It was placed in the old footprint of the ACL. It was aligned with the center of the ankle and 0 degrees of slope, 9 mm was then resected off the unaffected side. There was found to be an acceptable reduction. At this time, posterior osteophytes were removed along with medial and lateral meniscus. A trial implant was placed with a correct sized tibia that was mentioned at the beginning of the dictation. A Norwood size 6, 9 mm CS polyethylene insert was then placed. The patient's knee was brought through range of motion. The patella was tracking centrally and was stable to varus and valgus stress. Alignment was found to be roughly at 0 degrees. The tibia was stamped and drilled in proper rotation. The universal tibial base plate was impacted in place. Next, the Sindy size 6 press-fit CR femur impacted into place and the Sindy size 6, 9 mm CS polyethylene insert was placed. The patient's knee was brought into full extension. The patella was then press-fit in place at this time. Tourniquet was deflated. One liter dilute Betadine solution was irrigated through the knee along with 3 L of pulse lavage irrigation with Ancef. Periarticular injection was then completed. The patient's knee was brought through a range of motion. Knee was found to be stable to varus valgus stress, the patella was tracking centrally with full range of motion. At this time, a #2 barbed suture was used for closure of the medial parapatellar arthrotomy. Topical tranexamic acid was placed. 2-0 Vicryl was used subcutaneously, Prineo was used for the skin. The patient tolerated the procedure well and was sent to the PACU in stable condition. MMAMINAH /[id number] LINH
== END 2019-01-13 13:55 | disposition home or self-care (01) | DRG 302 ==
LOC: JD.SDS 09:45 → JD.OB 09:46
PROVIDERS: ADMIT Orthopaedic Surgery; ATTEND Orthopaedic Surgery
PROC: 3E0T3BZ Introduction of Anesthetic Agent into Peripheral Nerves and Plexi, Percutaneous Approach (ICD-10-PCS; principal; 2019-01-12)
PROC: 0SRC0JA Replacement of Right Knee Joint with Synthetic Substitute, Uncemented, Open Approach (ICD-10-PCS; 2019-01-12)
DX: M17.11 Unilateral primary osteoarthritis, right knee (principal); G56.03 Carpal tunnel syndrome, bilateral upper limbs; G89.29 Other chronic pain; R10.13 Epigastric pain; K21.9 Gastro-esophageal reflux disease without esophagitis; G47.00 Insomnia, unspecified; E66.01 Morbid (severe) obesity due to excess calories; G47.30 Sleep apnea, unspecified; R11.2 Nausea with vomiting, unspecified; Z91.018 Allergy to other foods; Z88.5 Allergy status to narcotic agent; Z79.899 Other long term (current) drug therapy; Z68.44 Body mass index [BMI] 60.0-69.9, adult
CPT/HCPCS: 01402; 36415; 64450; 73560-26-RT; 73560-RT; 80053; 85027; 87641; 97110-GP; 97116-GP; 97161-GP; 97165-GO; 97535-GO; A9270-GY; C1776; J0171; J0690; J0697; J1100; J1200; J1885; J2001; J2250; J2370; J2704; J2795; J3010; J3370; J3490; J7050; J7120

== ENCOUNTER 2020-03-09 07:46 | Day surgery (SDC) | payer BC ==
[~2020-03-09 07:46] MED LIST changes: -Acetaminophen 325 MG Tab PO SCH; -Bisacodyl 5 MG Tab PO PRN; -Dexamethasone 4 MG/ML 5 ML MDV ONE; -EPINEPHrine 1 MG/1 ML Amp ONE; -HYDROmorphone 0.5 MG/0.5 ML Syringe IVPUSH PRN; -Ketamine 500 mg/10 ML MDV ONE; -Ketorolac 30 MG/ML SDV ONE; -Lactated Ringers 1,000 ML ONE; -Magnesium Hydroxide 400 MG/5 ML Susp 30 ML Cup PO PRN; -Midazolam 1 MG/ML 2 ML SDV ONE; -Naloxone 0.4 MG/ML SDV IVPUSH PRN; -Ondansetron 4 MG/2 ML SDV IVPUSH PRN; -Pregabalin 25 MG Cap PO SCH; -Propofol 200 MG/20 ML SDV ONE; -Ropivacaine 0.5% 5 MG/ML 30 ML SDV ONE; -Scopolamine 1.5 MG Transdermal Patch TRDERM SCH; -Sennosides 8.6 MG Tab PO PRN; -fentaNYL 100 MCG/2 ML SDV ONE; -oxyCODONE ER 10 MG TAB.ER PO SCH
[2020-03-09] MEDS ORDERED: Lidocaine 1% 30 ML SDV ONE (08:04)
[2020-03-09 10:47] VITALS: BP 132/74; PULSE 66
[2020-03-09] MEDS ORDERED: Bupivacaine 0.25% 10 ML SDV ONE (12:32)
--- NOTE | 2020-03-16 13:28 | PCM.OPNOTE ---
- General Post-Op/Procedure Note Date of Surgery/Procedure: 03/09/20 Operative Procedure(s): bilateral carpal tunnel release Pre Op Diagnosis: bilateral median nerve compression neuropathy Post-Op Diagnosis: Same Anesthesia Technique: Local Primary Surgeon: Godfrey Ac Cut Off Tender Glass: Maryjo Pendleton in mLs: 10 Complications: None Condition: Good
--- NOTE | 2020-03-16 14:41 | OR ---
DATE OF OPERATION: 03/09/2020 SURGEON: Godfrey Ac MD OPERATION PERFORMED: Bilateral carpal tunnel releases. PREOPERATIVE DIAGNOSIS: Bilateral median nerve compression neuropathy. POSTOPERATIVE DIAGNOSIS: Bilateral median nerve compression neuropathy. ANESTHESIA: Local only. [employer] SERVICE EMPLOYEE: Maryjo Pendleton PA-C ESTIMATED BLOOD LOSS: 10 mL. COMPLICATIONS: None. CONDITION: Stable. DESCRIPTION OF PROCEDURE: The patient was identified in the preop holding area. Proper site was marked and identified by the surgeon. The patient was taken back to the operating theater where after adequate anesthesia, the patient's right upper extremity was sterilely prepped and draped in the usual sterile fashion. OR time-out was performed. The patient did not receive antibiotics and it is not indicated for soft tissue hand procedure. At this time, the right upper extremity was exsanguinated and an Esmarch was used as a tourniquet on the forearm. At this time, using 1% lidocaine without epinephrine and 0.25% Marcaine without epinephrine, the palmar cutaneous branch of the median nerve was anesthetized and then the incisional site was anesthetized using Rivas cardinal line and ulnar border of the fourth digit as reference. Once this had set up, an incision was made. Blunt dissection was taken down to the palmar cutaneous fascia. Palmar cutaneous fascia was incised with a Andreafski blade. At this time, the transverse carpal ligament was identified. A small rent was made in the transverse carpal ligament with a Andreafski blade under direct visualization. Resection of the transverse carpal ligament was done distally using tenotomy scissors making sure to stop short of the palmar arch. At this time, attention was turned proximally after it was found to be adequately released. Using the tenotomy scissors keeping the tips ulnar to protect the palmar cutaneous branch of the median nerve, the superficial forearm fascia as well as the transverse carpal ligament were resected proximally. It was found to be adequate release both proximally and distally. At this time, adequate saline was irrigated through the wound. 4-0 nylon sutures were used closure of the skin. The patient was placed in a sterile soft dressing and sent to PACU in stable condition. The patient was identified in the preop holding area. Proper site was marked and identified by the surgeon. The patient was taken back to the operating theater where after adequate anesthesia, the patient's left upper extremity was sterilely prepped and draped in the usual sterile fashion. OR time-out was performed. The patient did not receive antibiotics and it is not indicated for soft tissue hand procedure. At this time, the left upper extremity was exsanguinated and an Esmarch was used as a tourniquet on the forearm. At this time, using 1% lidocaine without epinephrine and 0.25% Marcaine without epinephrine, the palmar cutaneous branch of the median nerve was anesthetized and then the incisional site was anesthetized using Rivas cardinal line and ulnar border of the fourth digit as reference. Once this had set up, an incision was made. Blunt dissection was taken down to the palmar cutaneous fascia. Palmar cutaneous fascia was incised with a Andreafski blade. At this time, the transverse carpal ligament was identified. A small rent was made in the transverse carpal ligament with a Andreafski blade under direct visualization. Resection of the transverse carpal ligament was done distally using tenotomy scissors making sure to stop short of the palmar arch. At this time, attention was turned proximally after it was found to be adequately released. Using the tenotomy scissors keeping the tips ulnar to protect the palmar cutaneous branch of the median nerve, the superficial forearm fascia as well as the transverse carpal ligament were resected proximally. It was found to be adequate release both proximally and distally. At this time, adequate saline was irrigated through the wound. 4-0 nylon sutures were used closure of the skin. The patient was placed in a sterile soft dressing and sent to PACU in stable condition. A /[id number]
== END 2020-03-09 10:30 | disposition home or self-care (01) ==
LOC: JD.SDS 07:46
PROVIDERS: ATTEND Orthopaedic Surgery
DX: G56.13 Other lesions of median nerve, bilateral upper limbs (principal); G56.03 Carpal tunnel syndrome, bilateral upper limbs; G89.29 Other chronic pain; E66.01 Morbid (severe) obesity due to excess calories; G47.33 Obstructive sleep apnea (adult) (pediatric); L03.116 Cellulitis of left lower limb; Z01.812 Encounter for preprocedural laboratory examination; Z20.828 Contact with and (suspected) exposure to other viral communicable diseases; Z88.5 Allergy status to narcotic agent; Z79.899 Other long term (current) drug therapy; Z98.890 Other specified postprocedural states; Z68.42 Body mass index [BMI] 45.0-49.9, adult
CPT/HCPCS: 64721; 87635; 87641; J0690; J2001; J3490; U0002

== ENCOUNTER 2021-09-17 12:55 | Emergency (ER) | payer BC ==
[2021-09-17 14:49] VITALS: BP 132/88; PULSE 66
== END 2021-09-17 14:49 | disposition home or self-care (01) ==
LOC: JD.ED 12:55
DX: R07.89 Other chest pain (principal); M54.6 Pain in thoracic spine; E66.9 Obesity, unspecified; Z68.41 Body mass index [BMI] 40.0-44.9, adult; Z88.5 Allergy status to narcotic agent; Z91.018 Allergy to other foods
CPT/HCPCS: 36415; 71045; 71045-26; 80053; 82550; 84484; 85025; 86140; 93005; 99285-25

== ENCOUNTER 2022-04-11 07:09 | Day surgery (SDC) | payer BC ==
[~2022-04-11 07:09] MED LIST changes: +Sodium Chloride 0.9% 10 ML Syringe FLUSH SCH; -ceFAZolin 1 GM Vial ONE
[2022-04-11] MEDS ORDERED: Propofol 200 MG/20 ML SDV ONE ×3 (08:33→09:34)
[2022-04-11] MEDS ORDERED: fentaNYL 100 MCG/2 ML SDV ONE (08:34)
[2022-04-11] MEDS ORDERED: Lidocaine 1% 4 ML ONE (08:34)
[2022-04-11] MEDS ORDERED: Lactated Ringers 1,000 ML ONE (09:22)
[2022-04-11 10:26] VITALS: BP 128/70
[2022-04-11 10:32] VITALS: PULSE 78
== END 2022-04-11 10:30 | disposition home or self-care (01) ==
LOC: JD.SDS 07:09
PROVIDERS: ATTEND Surgery
DX: Z12.11 Encounter for screening for malignant neoplasm of colon (principal); K62.1 Rectal polyp; K57.30 Diverticulosis of large intestine without perforation or abscess without bleeding; G47.33 Obstructive sleep apnea (adult) (pediatric); K21.9 Gastro-esophageal reflux disease without esophagitis; E66.9 Obesity, unspecified; E23.0 Hypopituitarism; Z88.6 Allergy status to analgesic agent; Z79.899 Other long term (current) drug therapy; Z98.890 Other specified postprocedural states; Z68.41 Body mass index [BMI] 40.0-44.9, adult; Z96.659 Presence of unspecified artificial knee joint
CPT/HCPCS: 00812; J2704; J3010; J7120

== ENCOUNTER 2022-10-07 05:54 | Emergency (ER) | payer BC ==
[2022-10-07] MEDS ORDERED: HYDROmorphone 1 MG/ML Syringe IVPUSH ONE (06:33)
[2022-10-07] MEDS ORDERED: Ondansetron 4 MG/2 ML SDV IVPUSH ONE (06:33)
[2022-10-07] MEDS ORDERED: Sodium Chloride 0.9% 1,000 ML IV SCH (06:45)
[2022-10-07 08:08] VITALS: BP 121/90; PULSE 102
== END 2022-10-07 07:55 ==
LOC: JD.ED 05:54
DX: G89.18 Other acute postprocedural pain (principal); M54.50 Low back pain, unspecified; M54.6 Pain in thoracic spine; E66.9 Obesity, unspecified; Z68.39 Body mass index [BMI] 39.0-39.9, adult; Z88.5 Allergy status to narcotic agent; Z79.899 Other long term (current) drug therapy; Z98.890 Other specified postprocedural states
CPT/HCPCS: 96361; 96374; 96375; 99285; J1170; J2405; J7030